=== PATIENT | female | born 1935 | race Caucasian/White ===

== ENCOUNTER → 2018-04-29 | Outpatient (CLI) | payer MEDICARE ==
[~2018-04-29] MED LIST: CALC-1038 PO; CHOL20004 PO; FERR324T10 PO; GABA-531 PO; GABA600T10 PO; HYDR-3971 PO; POLY17PO4 PO; ROPI1TAB38 PO; TRAZ-185 PO; WARF-57 PO; WARF5TAB76 PO; WARF7.5T23 PO
--- NOTE | 2018-04-29 10:00 | NUR ---
MBSS COMPLETED. -S/S OF ASPIRATION. RECOMMEND FULL LIQUID DIET; PILLS WHOLE WITH LIQUIDS; 5 SMALL MEALS A DAY; GI CONSULT WITH UPPER GI SERIES. PATIENT INFORMATION: Pt IS AN 83 YEAR OLD FEMALE REFERRED FOR AN MBSS SECONDARY TO COMPLAINS OF FOOD "COMING BACK UP." Pt REPORTS THAT SHE FEELS LIKE THE FOOD DOES NOT GO DOWN. Pt STATES THAT ISSUES HAS BEEN GOING ON FOR APPROXIMATELY 2 YEARS AND HAS WORSENED IN THE LAST MONTHS. SHE STATES THAT SHE EXPERIENCES MORE ISSUES AT NIGHT WHEN SLEEPING. SHE CURRENTLY SLEEPS AT A 45 DEGREE ANGLE. Pt HAS A DIAGNOSIS OF DIVERTICULUM OF THE ESOPHAGUS. Pt HAS A PAST MEDICAL HISTORY SIGNIFICANT FOR ARTHRITIS, 5 BACK SURGERIES, STIMULATOR IMPLANTED, SCIATIC PAIN. Pt REPORTS THAT SHE IS CURRENTLY TAKING PRILOSEC EVERY MORNING. MBSS INTERPRETATION: OROPHARYNGEAL SWALLOW WITHIN FUNCTIONAL LIMITS. ORAL MOTOR COORDINATION, ROM AND STRENGTH WITHIN FUNCTIONAL LIMITS WITH TIMELY PHARYNGEAL TRIGGER RESPONSE AND EFFICIENT LARYNGEAL ELEVATION/EXCURSION. NO PENETRATION OR ASPIRATION PRESENT DURING MBSS. BOLUS REFLUX PAST UPPER ESOPHAGEAL SPHINCTER NOTED. Pt PRESENTS WITH ESOPHAGEAL DYSPHAGIA. A-P VIEW: BOLUS BACKED UP IN ESOPHAGUS NOT ALLEVIATED BY ALTERNATE BITES AND SIPS. BOLUS MOTILITY SLOW WITH BOLUS NOT CLEARING ESOPHAGUS EVEN AFTER MINUTES. A TOTAL OF 6 TRIALS COMPLETED WITH BOLUS REFLUX AND STASIS IN ESOPHAGUS. Pt WITH EXPECTORATION OF BOLUS SECONDARY TO INCREASED PRESSURE WITHIN THE ESOPHAGUS NOT ALLOWING BOLUS TO EMPTY. TRIALS: 1. TSP OF PUREED 2. TSP OF PUDDING 3. TSP THIN LIQUIDS 4. TSP MIXED TEXTURE 5. COOKIE 6. CUP SIP THIN LIQUIDS RECOMMENDATIONS: 1. FULL LIQUID DIET 2. GI CONSULT WITH UPPER GI SERIES 3. COMPENSATORY STRATEGIES: *SEATED AT 90 *REMAIN UPRIGHT 30 MINUTES AFTER THE MEAL *5 SMALL MEALS G-CODES SWALLOWING: [id number] Addendum: 04/30/18 at 0826 by [facility] Amended: Links added.
== END | disposition home or self-care (01) ==
LOC: RAH 09:21
PROVIDERS: ATTEND Internal Medicine
DX: K22.5 Diverticulum of esophagus, acquired (principal); R13.10 Dysphagia, unspecified
CPT/HCPCS: 74230; 92611

== ENCOUNTER → 2018-10-06 | Outpatient (CLI) | payer MEDICARE | END | disposition home or self-care (01) | LOC: RAH 08:08 | PROVIDERS: ATTEND Internal Medicine Gastroenterology | DX: K22.5 Diverticulum of esophagus, acquired (principal); K22.4 Dyskinesia of esophagus; K22.8 Other specified diseases of esophagus | CPT/HCPCS: 74240 ==

== ENCOUNTER 2018-10-15 05:30 | Day surgery (SDC) | payer MEDICARE ==
[2018-10-15] VITALS (8 sets, daily range): BP systolic 118–143; BP diastolic 44–68
[~2018-10-15] VITALS: Ht 157.5 cm; Wt 89.9 kg
[2018-10-15] MEDS ORDERED: SODIUM CHLORIDE 0.9% 1000ML 1,000 ML IV ONE (06:08)
[2018-10-15] MEDS ORDERED: PROPOFOL 10 MG/ML 20ML VIAL IV ONE (08:05)
[2018-10-15] MEDS ORDERED: LIDOCAINE HCL-MPF 2% 5ML VIAL ONE (08:06)
== END 2018-10-15 09:15 | disposition home or self-care (01) ==
LOC: ENDO 05:30 → DAH 05:30 → ENDO 09:15
PROVIDERS: ATTEND Internal Medicine
DX: K29.50 Unspecified chronic gastritis without bleeding (principal); K22.2 Esophageal obstruction; F41.9 Anxiety disorder, unspecified; K21.9 Gastro-esophageal reflux disease without esophagitis; Z98.49 Cataract extraction status, unspecified eye; Z98.890 Other specified postprocedural states; Z79.899 Other long term (current) drug therapy; Z88.8 Allergy status to other drugs, medicaments and biological substances; Z79.01 Long term (current) use of anticoagulants; Z87.891 Personal history of nicotine dependence; Z82.49 Family history of ischemic heart disease and other diseases of the circulatory system; Z82.3 Family history of stroke
CPT/HCPCS: 43239; 43249; 88305; 88342; J2704; J3490; J7030